=== PATIENT | female | born 1990 | race African-American/Black ===

== ENCOUNTER 2016-07-02 09:39 | Emergency (ER) | payer OTHER ==
[~2016-07-02] VITALS: Ht 170.2 cm; Wt 63.5 kg
[2016-07-02 09:40] VITALS: BP 125/98; PULSE 102; RESP 16; TEMP 97.9; O2SAT 99
--- NOTE | 2016-07-02 09:41 | NUR ---
Pt placed in room 7 for MD Mary whaley at bedside.
[2016-07-02 10:04] LABS: BASOPHILS % (AUTO) 0.6 % (0.0-2.0); EOSINOPHILS % (AUTO) 0.6 % (0.0-4.0); HEMATOCRIT 40.5 % (36-48); HEMOGLOBIN 13.9 g/dL (12.0-16.0); LYMPHOCYTES # (AUTO) 1.1 K/uL (1.0-5.5); LYMPHOCYTES % (AUTO) 27.2 % (20.5-51.5); MEAN CORPUSCULAR HEMOGLOBIN 28 pg (27-31); MEAN CORPUSCULAR HGB CONC 34 % (32-36); MEAN CORPUSCULAR VOLUME 82 fL (79.0-98.0); MONOCYTES # (AUTO) 0.8 K/uL (0.0-1.0); MONOCYTES % (AUTO) 18.6 % (1.7-9.3); NEUTROPHILS # (AUTO) 2.3 K/uL (1.8-7.7); PLATELET COUNT (AUTO) 174 K/uL (130-430); RED BLOOD CELL COUNT(AUTO) 4.93 MIL/uL (4.2-6.2); WHITE BLOOD COUNT (AUTO) 4.2 K/uL (4.8-10.8)
[2016-07-02 10:13] LABS: CREATININE 1.05 mg/dL (0.55-1.30); POTASSIUM 3.8 mmol/L (3.5-5.1)
--- NOTE | 2016-07-02 10:15 | NUR ---
Dr Hernandez at bedside examining patients
--- NOTE | 2016-07-02 10:15 | NUR ---
Pt brought by self, A&Ox4, pt c/o pain and burning with urination, skin pink and warm, cap refill <3, VSS,respirations even and unlabored.
[2016-07-02 10:25] LABS: BILIRUBIN,URINE NEGATIVE (NEGATIVE); BLOOD, URINE 1+ (NEGATIVE); CLARITY/URINE CLEAR (CLEAR); COLOR,URINE YELLOW (YELLOW); GLUCOSE,URINE NEGATIVE (NEGATIVE); KETONES,URINE NEGATIVE (NEGATIVE); LEUKOCYTE ESTERASE ,URINE 1+ (NEGATIVE); NITRITE, URINE NEGATIVE (NEGATIVE); PROTEIN URINE NEGATIVE (NEGATIVE); UROBILINOGEN,URINE 0.2 (0.2-1.0)
[2016-07-02 10:40] LABS: BACTERIA,URINE FEW /HPF (None Seen); MUCUS,URINE None Seen /LPF (None Seen)
--- NOTE | 2016-07-02 10:45 | NUR ---
Pt reassessed sitting in chair, no acute distress, no complaints at this time, awaiting re-eval.
[2016-07-02 11:15] VITALS: BP 121/76; PULSE 78; RESP 16; TEMP 97.9; O2SAT 98
--- NOTE | 2016-07-02 11:55 | NUR ---
Patient given written and verbal discharge instructions and verbalizes understanding. ER MD discussed with patient the results and treatment provided. Patient in stable condition. ID arm band removed. Rx of Pyridium and Macrobid given. Patient educated on pain management and to follow up with PMD. Pain Scale 0/10. Opportunity for questions provided and answered.
== END 2016-07-02 11:15 | disposition home or self-care (01) ==
LOC: SED 09:39
DX: N93.8 Other specified abnormal uterine and vaginal bleeding (principal); N39.0 Urinary tract infection, site not specified; R31.9 Hematuria, unspecified; R03.0 Elevated blood-pressure reading, without diagnosis of hypertension
CPT/HCPCS: 36415; 80048; 81000; 81025; 85025; 99284; J7030

== ENCOUNTER 2017-05-01 08:10 | Outpatient (CLI) | payer OTHER ==
[2017-05-01 08:48] LABS: BASOPHILS % (AUTO) 0.8 % (0.0-2.0); EOSINOPHILS # (AUTO) 0.1 K/uL (0.0-0.4); EOSINOPHILS % (AUTO) 1.1 % (0.0-4.0); HEMATOCRIT 43.3 % (36-48); HEMOGLOBIN 14.1 g/dL (12.0-16.0); LYMPHOCYTES # (AUTO) 2.2 K/uL (1.0-5.5); LYMPHOCYTES % (AUTO) 37.3 % (20.5-51.5); MEAN CORPUSCULAR HEMOGLOBIN 28 pg (27-31); MEAN CORPUSCULAR HGB CONC 33 % (32-36); MEAN CORPUSCULAR VOLUME 85 fL (79.0-98.0); MONOCYTES # (AUTO) 0.4 K/uL (0.0-1.0); MONOCYTES % (AUTO) 7.2 % (1.7-9.3); NEUTROPHILS # (AUTO) 3.3 K/uL (1.8-7.7); NEUTROPHILS % (AUTO) 53.6 % (40.0-70.0); PLATELET COUNT (AUTO) 272 K/uL (130-430); RED BLOOD CELL COUNT(AUTO) 5.09 MIL/uL (4.2-6.2); RED CELL DISTRIBUTION WIDTH 12.1 % (9.0-15.0)
[2017-05-01 09:03] LABS: ALBUMIN 3.8 g/dL (3.4-4.8); CALCIUM 9.6 mg/dL (8.4-11.0); CREATININE 0.85 mg/dL (0.55-1.30); POTASSIUM 3.9 mmol/L (3.5-5.1); THYROID STIMULATING HORMONE 1.7 uIu/mL (0.34-4.82); TOTAL BILIRUBIN 0.3 mg/dL (0.0-1.0)
[2017-05-03 06:06] LABS: FOLATE (FOLIC ACID) 11.4 ng/mL (>3.0)
== END 2017-05-01 19:11 | disposition home or self-care (01) ==
LOC: SLB 08:10
PROVIDERS: ATTEND General Practice
DX: Z01.411 Encounter for gynecological examination (general) (routine) with abnormal findings (principal); L30.9 Dermatitis, unspecified; E56.0 Deficiency of vitamin E
CPT/HCPCS: 36415; 80053; 80061; 82306; 82607; 82746; 84443-TC; 85025